=== PATIENT | male | born 1995 | race Hispanic/Latino ===

== ENCOUNTER 2021-03-15 09:58 | Emergency (ER) | payer SELFPAY ==
[2021-03-15 10:10] VITALS: BP 134/94
== END 2021-03-15 12:00 | disposition left against medical advice (07) ==
LOC: ED 09:58
DX: K08.89 Other specified disorders of teeth and supporting structures (principal); Z53.21 Procedure and treatment not carried out due to patient leaving prior to being seen by health care provider